=== PATIENT | male | born 1985 | race Caucasian/White ===

== ENCOUNTER 2024-02-27 08:06 | Emergency (ER) | payer SELFPAY ==
[2024-02-27 08:10] VITALS: BP 131/83
--- NOTE | 2024-02-27 08:14 | ED.GENMED ---
History of Present Illness
General
Chief Complaint: Flank Pain
Source: patient and ambulance crew
Time Seen by Provider: 02/27/24 08:13
History of Present Illness
History of Present Illness:
38yoM with no significant past medical history presenting via EMS for evaluation of flank pain. The pain started around midnight and woke him up from sleep. The pain is located in the left flank and LLQ. The pain has been constant. Nothing seems to
make the pain better or worse. No prior history of similar pains. He took 1000mg Tylenol about 3 hours ago. He also reports nausea but this is not unusual for him. He denies any fevers, vomiting, shortness of breath, pleuritic pain, testicular pain,
dysuria, hematuria, trauma. +Family history of kidney stones.
Phy Exam
Physical Exam
Physical Exam:
Appears uncomfortable, non-toxic
General Physical Exam
General Presentation: well appearing
General Skin: warm and dry
General Habitus: normal
General Mental: alert
General Hydration: appears well hydrated
ENT Exam
ENT Exam: normocephalic
Cardiovascular Exam
Cardiovascular Exam: regular rate/rhythm and no murmur
Pulmonary Exam
Pulmonary Exam: lungs clear, no respiratory distress, no rales, no crackles, no rhonchi and no wheezing
Gastrointestinal Exam
Gastrointestinal Exam: non tender, soft, non distended and no cva tenderness
Neurological Exam
Neurological Exam: alert
Jeffrey Coma Scale
Eye Opening: Spontaneous
Verbal Response: Oriented
Motor Response: Obeys Commands
GCS Total Score: 15
Skin Exam
Skin Exam: normal color and warm/dry
Psychiatric Exam
Psychiatric Exam: normal mood/affect
Course
Orders/Labs/Results
Orders:
Orders
02/27/24 08:13
0.9% Sodium Chloride 1000 ml [Nss] 1,000 ml IV BOLUS
Ketorolac [Toradol] 15 mg IV NOW STA
02/27/24 08:14
CT Abd/pel Without Iv Or Oral Urgent
Comment:
Reason For Exam: L flank pain, L sided abd pain
02/27/24 08:23
Complete Blood Count/With Diff Urgent
Comprehensive Metabolic Panel Urgent
02/27/24 10:09
Urinalysis Reflex To Culture Urgent
Date Specimen was Collected: 02/27/24
Time Specimen was Collected: 09:57
Urine Microscopic Reflex Cult Urgent
Abnormal Lab Results
02/27/24 02/27/24
08:23 10:09
RBC 4.56 L 10^6/uL
(4.70-6.10)
RDW 11.2 L %
(11.5-14.5)
MPV 10.6 H fL
(7.4-10.4)
Glucose 120 H mg/dl
(70-99)
Ur Occult Blood Reflex 4+ A
(Negative)
Urine RBC 26-30 A /HPF
(0-2)
02/27/24 08:23
02/27/24 08:23
Vital Signs
Initial and Last Documented VS:
Initial Vital Signs
Temp Pulse Resp BP Pulse Ox
98.6 F 69 20 131/83 99
02/27/24 08:10 02/27/24 08:10 02/27/24 08:10 02/27/24 08:10 02/27/24 08:10
Last Documented Vital Signs
Temp Pulse Resp BP Pulse Ox
97.7 F 73 18 116/79 100
02/27/24 10:53 02/27/24 10:53 02/27/24 10:53 02/27/24 10:53 02/27/24 10:53
MDM/Problems Addressed
Differential Diagnosis Includes:
38yoM here with atraumatic L flank and LLQ pain that began overnight. +Nausea. No urinary symptoms. Patient is afebrile and hemodynamically stable. He appears uncomfortable but is non-toxic. No reproducible abdominal or CVA tenderness. Differential
diagnosis includes but is not limited to: kidney stone, UTI, pyelonephritis, diverticulitis, musculoskeletal
Initial ED plan: Check CBC, CMP, UA, and CT abdomen. IV Toradol and fluid bolus for symptoms.
*Critical Care Note
Total Time (30-74mins, 75-104mins- exclusive of procedures): Not Applicable
Update Note
Update Note:
CT shows mild fat stranding to the distal aspect of the L ureter. No ureterolithiasis noted although 4mm non-obstructing L intrarenal stone noted. UA with 4+ blood without signs of infection. Suspect passed kidney stone. Pain has resolved after
receiving Toradol. He is stable for discharge. Supportive care discussed. Advised follow-up with PCP and urology. ED return precautions discussed. He expressed understanding and is agreement with plan. He was discharged in stable condition.
ED Attending Note
-
Portions of this chart may have been created with voice recognition software.� Occasional wrong word or��sound alike� substitutions may have occurred due to the inherent limitations of voice recognition software.
Discharge Plan
Departure
Patient Disposition: Home (Routine Discharge)
Date of Disposition: 02/27/24
Time of Disposition: 10:48
Patient with high blood pressure during this ER visit?: No
Discharge Problem:
Left flank pain
Instructions: Flank Pain (DC)
Referrals:
Enrrique Solis MD [Active] -
NONE,* [Family Provider] -
Activity Restrictions/Additional Instructions:
Take Tylenol and ibuprofen for pain.
Please follow-up with your family doctor and urology. Return to the ER with any new or worsening symptoms.
Interventions
Interventions:
*Risk Screen - Suicide Last Done: 02/27/24 08:10
*General Assessment Last Done: 02/27/24 08:10
*Neglect/Abuse Screening Last Done: 02/27/24 08:10
*ED COVID-19 Vaccine History Last Done: 02/27/24 08:55
*Nursing Disposition Last Done: 02/27/24 10:56
SC-Epqrsq-Rrtftdjytt Assessment Last Done: 02/27/24 08:55
ED-Male Genitourinary Assessment Last Done: 02/27/24 08:55
Discharge Date and Time
Discharge Date/Time: 02/27/24 10:59
Print Language: NEPALI
[2024-02-27 08:33] LABS: % Basophils 0.8 % (0-2); % Eosinophils 1.2 % (0-6); % Immature Granulocytes 0.3 % (0-0.5); % Lymphocytes 31.4 % (20.5-51.1); % Monocytes 6.2 % (1.7-9.3); % Neutrophils 60.1 % (42.2-75.2); Absolute Basophils 0.1 10^3/uL (0-0.2); Absolute Eosinophils 0.1 10^3/uL (0-0.7); Absolute Lymphocytes 2.3 10^3/uL (1.2-3.4); Absolute Monocytes 0.5 10^3/uL (0.1-0.6); Absolute Neutrophils 4.4 10^3/uL (1.4-6.5); Hematocrit 42.2 % (39.0-52.0); Mean Corp Hgb Conc. 33.2 g/dL (33.0-37.0); Mean Corpuscular Hgb 30.7 pg (27.0-31.0); Mean Corpuscular Volume 92.5 fL (80.0-94.0); Mean Platelet Volume 10.6 fL (7.4-10.4); Nucleated Red Blood Cells % 0 % (-); Platelet Count 226 10^3/uL (130-400); Red Blood Cell Count 4.56 10^6/uL (4.70-6.10); Red Cell Dist. Width 11.2 % (11.5-14.5); White Blood Cell Count 7.3 10^3/uL (4.8-10.8)
[2024-02-27] MEDS: NSS 1000 IV (08:35)
[2024-02-27] MEDS: TORADOL 15 MG IV (08:35)
[2024-02-27 08:45] LABS: ALT (SGPT) 22 U/L (0-50); AST (SGOT) 21 U/L (17-59); Albumin 4.4 g/dl (3.5-5.0); Alkaline Phosphatase 56 U/L (38-126); Blood Urea Nitrogen 17 mg/dl (9-20); Calcium 9.1 mg/dl (8.4-10.2); Carbon Dioxide 26 mmol/L (22-30); Chloride 104 mmol/L (98-107); Estimated Creatinine Clearance 102 ml/min; Glucose 120 mg/dl (70-99); Potassium 4.5 mmol/L (3.5-5.1); Sodium 139 mmol/L (135-145); Total Bilirubin 0.9 mg/dl (0.2-1.3); Total Protein 7.2 g/dl (6.3-8.2); eGFR > 60.00
[2024-02-27 10:25] LABS: Urine Albumin Negative (Neg - Trace); Urine Bilirubin Negative (Negative); Urine Character Clear (Clear); Urine Color Yellow; Urine Glucose Negative (Negative); Urine Ketone Negative (Negative); Urine Leukocyte Negative (Negative); Urine Nitrite Negative (Negative); Urine Occult Blood 4+ (Negative); Urine Urobilinogen Negative (Neg - 1+)
[2024-02-27 10:42] LABS: Urine Mucus Many
[2024-02-27 10:44] LABS: Urine Amorphous Seen; Urine Red Blood Cell 26-30 /HPF (0-2); Urine White Cell 0-2 /HPF (0-5)
[2024-02-27 10:53] VITALS: BP 116/79
== END 2024-02-27 10:59 | disposition home or self-care (01) ==
LOC: EMR 08:06
PROVIDERS: Physician Assistant; EMERGENCY PHYSICIAN Emergency Medicine
DX: R10.9 Unspecified abdominal pain (principal); R11.0 Nausea; N20.0 Calculus of kidney
CPT/HCPCS: 99284; 96374; 96361; 74176; 80053; 81003; 81015; 85025

== ENCOUNTER 2024-02-28 08:27 | Emergency (ER) | payer SELFPAY ==
[2024-02-28 08:33] VITALS: BP 113/72
--- NOTE | 2024-02-28 08:33 | ED.GENMED ---
ED Provider Triage
<Jazz Lopez PA-C - Last Filed: 02/28/24 08:41>
-
Patient seen by provider in Triage?: Seen in Triage
Attestation: A medical screening examination has been initiated by a qualified medical provider. Based on the assessment performed at this time, it has been determined that an emergent medical condition may exist and the patient has been informed
that further medical evaluation and possible additional diagnostic testing may be needed.
HPI: 38yoM here with L flank pain radiating to L abdomen/L testicle. Seen in ED yesterday for the same. CT abdomen showed inflammation of ureter with blood in urine without ureterolithiasis. Symptoms thought to be a passed stone and he was
discharged. Here with persistent pain and new testicle pain. Urinating normally. No fevers or vomiting.
GENERAL: Alert , in no apparent distress
EYE: No visual abnormalities.
NECK: Trachea midline
ENT: No visible abnormalities.
LUNGS: No acute respiratory distress
NEUROLOGICAL: Alert and oriented
SKIN: Skin intact. No visible changes.
MUSCULOSKELETAL: Moving extremities normally
PSYCH: Normal and appropriate interaction.
This is a medical evaluation conducted in person to initiate diagnostic evaluation and provide initial therapeutics. Please see further documentation by the treating clinician.
CBC, CMP, UA, and scrotal/renal ultrasound ordered. Patient declines analgesics in triage.
History of Present Illness
<Jazz Lopez PA-C - Last Filed: 02/28/24 08:41>
General
Chief Complaint: Male Genito-Urinary Symptoms
Time Seen by Provider: 02/28/24 10:50
<Colton Carmichael Jr., PA-C - Last Filed: 02/28/24 13:25>
General
Source: patient
Exam Limitations: none
Nursing documentation reviewed up to this point in time: agreed with
History of Present Illness
History of Present Illness:
38-year-old male presenting to the emergency department today with concerns of ongoing left-sided flank discomfort now moving to the left lower abdomen left groin. Had a CT scan yesterday that showed a 4 mm stone at the intrarenal collecting system
nonobstructing at the time. Also some fat stranding adjacent to the distal aspect of the left ureter which potentially was related to recently passed stone or ascending urinary tract infection. Do suspect that he recently passed out at the time
yesterday. He is presenting with worsening pain today. Denies fevers chest pain shortness of breath has been able to tolerate by mouth. Has been taking Motrin without full relief.
Review of Systems
<Colton Carmichael Jr., PA-C - Last Filed: 02/28/24 13:25>
Review of Systems
Allergies reviewed?: Yes
All Other Systems: ROS reviewed and negative except as documented in HPI and ROS
Phy Exam
<Colton Carmichael Jr., PA-C - Last Filed: 02/28/24 13:25>
Physical Exam
Physical Exam:
GENERAL: Alert , in no apparent distress
EYE: pupils equal and reactive
NECK: Supple, no significant adenopathy.
ENT: o/p clr, mmm.
CARDIAC: Regular rate and rhythm .
LUNGS: Clear breath sounds bilaterally, no acute respiratory distress, no wheezes/rales/rhonchi
ABDOMEN: Soft, without focal tenderness, no r/g, no cvat
NEUROLOGICAL: Alert and oriented, no focal neuro deficits
SKIN: Warm and dry, skin intact.
MUSCULOSKELETAL: No edema, well perfused.
PSYCH: Normal and appropriate interaction.
Course
<Jazz Lopez PA-C - Last Filed: 02/28/24 08:41>
Orders/Labs/Results
Orders:
Orders
02/28/24 08:35
Renal & Bladder US [US Renal With Bladder] Urgent
Comment:
Reason For Exam: L flank pain
Scrotum US [US Scrotum] Urgent
Comment:
Reason For Exam: L testicle pain
02/28/24 08:44
Complete Blood Count/With Diff Urgent
Comprehensive Metabolic Panel Urgent
Urinalysis Reflex To Culture Urgent
Date Specimen was Collected: 02/28/24
Time Specimen was Collected: 08:38
Urine Microscopic Reflex Cult Urgent
Urine Culture Urgent
JENNY Source: U
Specimen Description:
Date Specimen was Collected: 02/28/24
Time Specimen was Collected: 08:38
02/28/24 11:55
Ketorolac [Toradol] 30 mg IM NOW STA
Tamsulosin [Flomax] 0.4 mg PO NOW STA
Abnormal Lab Results
02/28/24
08:44
RBC 4.52 L 10^6/uL
(4.70-6.10)
MCH 31.4 H pg
(27.0-31.0)
RDW 11.4 L %
(11.5-14.5)
MPV 10.8 H fL
(7.4-10.4)
Glucose 113 H mg/dl
(70-99)
Ur Occult Blood Reflex 4+ A
(Negative)
Urine RBC 70-80 A /HPF
(0-2)
Urine Bacteria (Reflex) Many A
(Negative)
02/28/24 08:44
02/28/24 08:44
Vital Signs
Initial and Last Documented VS:
Initial Vital Signs
Temp Pulse Resp BP Pulse Ox
98 F 63 16 113/72 98
02/28/24 08:33 02/28/24 08:33 02/28/24 08:33 02/28/24 08:33 02/28/24 08:33
Last Documented Vital Signs
Temp Pulse Resp BP Pulse Ox
98 F 63 16 113/72 98
02/28/24 08:33 02/28/24 08:33 02/28/24 08:33 02/28/24 08:33 02/28/24 08:33
<Colton Carmichael Jr., PA-C - Last Filed: 02/28/24 13:25>
Orders/Labs/Results
Orders:
Orders
02/28/24 08:35
Renal & Bladder US [US Renal With Bladder] Urgent
Comment:
Reason For Exam: L flank pain
Scrotum US [US Scrotum] Urgent
Comment:
Reason For Exam: L testicle pain
02/28/24 08:44
Complete Blood Count/With Diff Urgent
Comprehensive Metabolic Panel Urgent
Urinalysis Reflex To Culture Urgent
Date Specimen was Collected: 02/28/24
Time Specimen was Collected: 08:38
Urine Microscopic Reflex Cult Urgent
Urine Culture Urgent
JENNY Source: U
Specimen Description:
Date Specimen was Collected: 02/28/24
Time Specimen was Collected: 08:38
02/28/24 11:55
Ketorolac [Toradol] 30 mg IM NOW STA
Tamsulosin [Flomax] 0.4 mg PO NOW STA
Abnormal Lab Results
02/28/24
08:44
RBC 4.52 L 10^6/uL
(4.70-6.10)
MCH 31.4 H pg
(27.0-31.0)
RDW 11.4 L %
(11.5-14.5)
MPV 10.8 H fL
(7.4-10.4)
Glucose 113 H mg/dl
(70-99)
Ur Occult Blood Reflex 4+ A
(Negative)
Urine RBC 70-80 A /HPF
(0-2)
Urine Bacteria (Reflex) Many A
(Negative)
02/28/24 08:44
02/28/24 08:44
Vital Signs
Initial and Last Documented VS:
Initial Vital Signs
Temp Pulse Resp BP Pulse Ox
98 F 63 16 113/72 98
02/28/24 08:33 02/28/24 08:33 02/28/24 08:33 02/28/24 08:33 02/28/24 08:33
Last Documented Vital Signs
Temp Pulse Resp BP Pulse Ox
98 F 63 16 113/72 98
02/28/24 08:33 02/28/24 08:33 02/28/24 08:33 02/28/24 08:33 02/28/24 08:33
<Colton Carmichael Jr., PA-C - Last Filed: 02/28/24 13:25>
MDM/Problems Addressed
MDM/Problems Addressed:
38-year-old male presenting to the emergency department today with concerns of progressive pain previously left flank pain now left groin pain. Was seen to have a 4 mm stone at the pelvis of the kidney nonobstructing yesterday they are deemed
possibly have a recently passed stone yesterday. Today an ultrasound that did not show any abnormalities to the kidney but did not show evidence of a stone possibly representing a stone down the ureter. Ultrasound of the scrotum was normal patient
denies any specific changes to the scrotum. Labs without significant white counts normal renal function and no evidence of urinary tract infection to have ongoing discomfort from plan for symptomatic treatment and urology follow-up.
<Colton Carmichael Jr., PA-C - Last Filed: 02/28/24 13:25>
*Critical Care Note
Total Time (30-74mins, 75-104mins- exclusive of procedures): Not Applicable
ED Attending Note
<Jazz Lopez PA-C - Last Filed: 02/28/24 08:41>
-
Portions of this chart may have been created with voice recognition software.� Occasional wrong word or��sound alike� substitutions may have occurred due to the inherent limitations of voice recognition software.
Discharge Plan
Departure
Patient Disposition: Home (Routine Discharge)
Date of Disposition: 02/28/24
Time of Disposition: 13:20
Patient with high blood pressure during this ER visit?: No
Condition: Good
Covid-19: Not Applicable
Discharge Problem:
Calculus, ureteral
Instructions: Kidney Stone, Adult ED
Prescriptions:
New
ketorolac 10 mg tablet
10 mg PO Q8H 5 Days Qty: 15 0RF
tamsulosin [Flomax] 0.4 mg capsule
0.4 mg PO DAILY Qty: 10 0RF
Referrals:
NONE,* [Family Provider] -
Jatinder Hendrickson MD [Active] - Follow up in 5-7 days
Activity Restrictions/Additional Instructions:
You came to the emergency department today with concerns of ongoing flank lower abdominal and groin discomfort. This likely is from a kidney stone. Please follow-up closely with urology and take the prescribed occasions. Return for any worsening,
new or concerning symptoms.
Interventions
Interventions:
*Risk Screen - Suicide Last Done: 02/28/24 08:33
*General Assessment Last Done: 02/28/24 08:33
*Neglect/Abuse Screening Last Done: 02/28/24 08:33
Discharge Date and Time
Print Language: SLOVENIAN
[2024-02-28 08:54] LABS: Urine Albumin Trace (Neg - Trace); Urine Bilirubin Negative (Negative); Urine Character Clear (Clear); Urine Color Yellow; Urine Glucose Negative (Negative); Urine Ketone Negative (Negative); Urine Leukocyte Negative (Negative); Urine Nitrite Negative (Negative); Urine Occult Blood 4+ (Negative); Urine Urobilinogen Negative (Neg - 1+)
[2024-02-28 09:04] LABS: Urine Squamous Cell >30 /LPF (Few)
[2024-02-28 09:05] LABS: ALT (SGPT) 21 U/L (0-50); AST (SGOT) 21 U/L (17-59); Albumin 4.4 g/dl (3.5-5.0); Alkaline Phosphatase 53 U/L (38-126); Blood Urea Nitrogen 13 mg/dl (9-20); Calcium 9.3 mg/dl (8.4-10.2); Carbon Dioxide 30 mmol/L (22-30); Chloride 104 mmol/L (98-107); Glucose 113 mg/dl (70-99); Potassium 4.3 mmol/L (3.5-5.1); Sodium 142 mmol/L (135-145); Total Protein 7.3 g/dl (6.3-8.2); Urine Bacteria Many (Negative); Urine Red Blood Cell 70-80 /HPF (0-2); Urine White Cell 0-2 /HPF (0-5); eGFR > 60.00
[2024-02-28 09:09] LABS: % Basophils 0.8 % (0-2); % Eosinophils 1.5 % (0-6); % Immature Granulocytes 0.3 % (0-0.5); % Lymphocytes 35.5 % (20.5-51.1); % Monocytes 7.4 % (1.7-9.3); % Neutrophils 54.5 % (42.2-75.2); Absolute Basophils 0.1 10^3/uL (0-0.2); Absolute Eosinophils 0.1 10^3/uL (0-0.7); Absolute Lymphocytes 2.7 10^3/uL (1.2-3.4); Absolute Monocytes 0.6 10^3/uL (0.1-0.6); Absolute Neutrophils 4.1 10^3/uL (1.4-6.5); Hematocrit 42.4 % (39.0-52.0); Hemoglobin 14.2 g/dL (13.0-18.0); Mean Corp Hgb Conc. 33.5 g/dL (33.0-37.0); Mean Corpuscular Hgb 31.4 pg (27.0-31.0); Mean Corpuscular Volume 93.8 fL (80.0-94.0); Mean Platelet Volume 10.8 fL (7.4-10.4); Nucleated Red Blood Cells % 0 % (-); Platelet Count 228 10^3/uL (130-400); Red Blood Cell Count 4.52 10^6/uL (4.70-6.10); Red Cell Dist. Width 11.4 % (11.5-14.5); White Blood Cell Count 7.6 10^3/uL (4.8-10.8)
[2024-02-28] MEDS: TORADOL 30 MG IM (12:08)
[2024-02-28] MEDS: FLOMAX 0.4 MG PO (12:09)
[2024-02-28 13:42] VITALS: BP 115/70
== END 2024-02-28 13:44 | disposition home or self-care (01) ==
LOC: EMR 08:27
PROVIDERS: Physician Assistant; EMERGENCY PHYSICIAN Emergency Medicine
DX: N20.1 Calculus of ureter (principal); Z87.440 Personal history of urinary (tract) infections
CPT/HCPCS: 99284; 96372; 76770; 76870; 80053; 81003; 81015; 85025; 87086; 93976

== ENCOUNTER 2025-02-05 13:40 | Emergency (ER) | payer OTHER, SELFPAY ==
[2025-02-05 13:45] VITALS: BP 126/83
--- NOTE | 2025-02-05 15:14 | ED.GENMED ---
History of Present Illness
General
Chief Complaint: Chest Pain
Time Seen by Provider: 02/05/25 15:14
History of Present Illness
History of Present Illness:
FOCUSED PAST MEDICAL HISTORY
- No significant past medical history
REVIEW OF OLD RECORDS
- The patient has been seen here with flank pain in the past
Note:
CHIEF COMPLAINT(S)
Left upper abdominal pain and numbness under the ribs.
HISTORY OF PRESENT ILLNESS
The patient is a 39-year-old male presenting with left upper abdominal pain and a sensation of numbness beneath the ribs on the anterior side. The symptoms are localized, with no pain radiating to the right side or associated with the gallbladder
region. The onset was not associated with any particular trauma or injury, and the patient denies any respiratory-related pain or symptoms upon inspiration. The patient describes the sensation as a 'bubble' beneath the ribs that feels as if it is
'pushing up,' creating discomfort. No rash or dermatological symptoms indicative of shingles were observed. The pain does not worsen with deep breaths, and the sensation is more pronounced upon touch. The patient reports the pain is more intense
than a mild pinch.
PAST MEDICAL AND SURGICAL HISTORY
The patient denies a history of high blood pressure, high cholesterol, or diabetes.
SOCIAL HISTORY
The patient reports having recently started smoking but states that he is not smoking anymore.
REVIEW OF SYSTEMS
- Respiratory: No pain on inspiration, oxygen levels are normal.
- Cardiovascular: Previous EKG was normal.
- Gastrointestinal: Localized pain in the left upper abdomen without referred pain or gastrointestinal distress.
- Neurological: Describes a 'numb' sensation but is responsive to physical touch.
PHYSICAL EXAM
General: Alert, no acute distress.
Skin: No rashes observed in the affected area.
Head: Normocephalic, atraumatic.
Neck: Supple, trachea midline.
Eyes, Ears, Nose, Mouth, and Throat: Oral mucosa moist.
Cardiovascular: Normal peripheral perfusion, no edema.
Respiratory: Respirations are non-labored.
Gastrointestinal: Abdomen nondistended; minimal tenderness to palpation of the left 10th rib anteriorly, no significant left upper quadrant tenderness
Back: Normal range of motion, normal alignment.
Musculoskeletal: Normal range of motion, normal strength.
Neurological: Alert and oriented to person, place, time, and situation; no focal neurological deficit observed.
Psychiatric: Cooperative, appropriate mood and affect.
PLAN
1. Perform laboratory blood work to rule out serious underlying concerns, including cardiac causes.
2. Obtain a chest X-ray to assess for any structural abnormalities or other causes of the pain.
3. Conduct a screening test to rule out the possibility of a blood clot. If abnormalities are detected, consider a CT scan for further evaluation.
4. Administer Toradol intravenously for pain relief, recognizing it as a non-opioid anti-inflammatory medication.
5. Follow up to discuss test results and determine further management if needed.
DIFFERENTIAL DIAGNOSIS
The Differential Diagnosis includes, in no particular order and is not limited to:
1. Musculoskeletal pain
2. Costochondritis
3. Rib fracture or contusion
4. Pleurisy
5. Gastroesophageal reflux disease (GERD)
6. Pancreatitis
7. Splenic involvement or pathology
8. Peptic ulcer disease
9. Herpes Zoster (Shingles) without rash
10. Acute coronary syndrome (less likely given EKG results but remains a consideration)
RADIOLOGY
- Chest x-ray obtain which shows no acute abnormality
EKG
- Sinus 62, RSR' pattern, incomplete right bundle branch block, no acute ST abnormality, no old to compare
LABS
- D-dimer and troponin obtained and both are unremarkable
UPDATE
- Toradol given
SUMMARY OF ENCOUNTER
The patient, a 39-year-old male, presented to the emergency department with left upper abdominal pain and numbness beneath the ribs. Workup included laboratory blood tests and a chest X-ray. The x-ray showed no structural abnormalities such as
pneumonia, air outside the lung, or signs of blood clots or heart attack. An EKG was performed and yielded normal results. The findings suggest that the pain could be due to musculoskeletal inflammation or rib cage issues, and it may improve with
NSAIDs like ibuprofen (Motrin). The patients vital signs were stable, and there was no medical indication for an inpatient stay.
DISPOSITION
Discharge.
ASSESSMENT
Left side chest wall pain likely of musculoskeletal origin.
PLAN
The patient will be discharged with recommendations for [id number] ibuprofen (Motrin) as needed for pain relief.
INDEPENDENT REVIEW OF LABS AND INTERPRETATION OF TESTS
My independent interpretation of the chest x-ray is that it shows no abnormalities suggestive of structural issues, such as pneumonia or pneumothorax. The EKG reviewed appeared normal with no indications of cardiac issues.
PATIENT EDUCATION AND COUNSELING
The patient was advised on the likely musculoskeletal nature of the pain and the potential benefit of NSAIDs such as ibuprofen. Patient was informed of the normal results of the x-ray and EKG, reinforcing the absence of serious issues like pneumonia
or cardiac events.
FOLLOW-UP INSTRUCTIONS
The patient is advised to follow up with a primary care physician if symptoms persist or worsen for further evaluation and management.
MEDICATION RECONCILIATION
The patient is recommended to take [id number] ibuprofen (Motrin) for pain management as needed.
MEDICAL DECISION MAKING
-Complexity of Data Reviewed: Differential diagnoses include musculoskeletal pain, costochondritis, rib fracture or contusion, pleurisy, gastroesophageal reflux disease (GERD), pancreatitis, splenic involvement or pathology, peptic ulcer disease,
hidden herpes zoster (without rash), and acute coronary syndrome.
-Data:
Category 1:
My independent interpretation of chest x-ray and EKG shows no abnormalities.
-Risk:
Prescription medication was not prescribed, as [id number] NSAIDs were recommended instead.
DIAGNOSIS
Left-sided chest wall pain
Phy Exam
Physical Exam
Physical Exam:
See HPI
Scores
Heart Score for Chest Pain Patients
STEMI patient?: Not applicable
Course
Orders/Labs/Results
Orders:
Orders
02/05/25 13:41
EKG [Electrocardiogram (*1)] Urgent
Reason for Study: Chest Pain
EKG- Treatment ONCE
02/05/25 15:25
Ketorolac [Toradol] 15 mg IV NOW STA
02/05/25 15:26
CR Chest - 2 Views Urgent
Comment:
Reason For Exam: L lower chest pain
02/05/25 15:42
Complete Blood Count/With Diff Urgent
Comprehensive Metabolic Panel Urgent
D-Dimer Urgent
Troponin I Urgent
Abnormal Lab Results
02/05/25
15:42
RBC 4.54 L 10^6/uL
(4.70-6.10)
MCH 31.3 H pg
(27.0-31.0)
RDW 11.2 L %
(11.5-14.5)
MPV 10.8 H fL
(7.4-10.4)
Absolute Monos (auto) 0.7 H 10^3/uL
(0.1-0.6)
Carbon Dioxide 31 H mmol/L
(22-30)
02/05/25 15:42
02/05/25 15:42
Vital Signs
Initial and Last Documented VS:
Initial Vital Signs
Temp Pulse Resp BP Pulse Ox
36.9 C 72 18 126/83 97
02/05/25 13:45 02/05/25 13:45 02/05/25 13:45 02/05/25 13:45 02/05/25 13:45
Last Documented Vital Signs
Temp Pulse Resp BP Pulse Ox
36.9 C 60 15 120/68 97
02/05/25 13:45 02/05/25 16:30 02/05/25 16:30 02/05/25 15:18 02/05/25 16:30
*Pulse Oximetry
SaO2: 97
Oxygen Mode of Delivery: Room air
Patient hypoxic: no
*Critical Care Note
Total Time (30-74mins, 75-104mins- exclusive of procedures): Not Applicable
ED Attending Note
-
Portions of this chart may have been created with voice recognition software.� Occasional wrong word or��sound alike� substitutions may have occurred due to the inherent limitations of voice recognition software.
Discharge Plan
Departure
Patient Disposition: Home (Routine Discharge)
Date of Disposition: 02/05/25
Time of Disposition: 16:47
Patient with high blood pressure during this ER visit?: Yes
Discharge Problem:
Acute chest wall pain
Instructions: Costochondritis, Chest Pain PCP Follow Up, BLOOD PRESSURE
Prescriptions:
No Action
ketorolac 10 mg tablet
10 mg PO Q8H 5 Days Qty: 15 0RF
tamsulosin [Flomax] 0.4 mg capsule
0.4 mg PO DAILY Qty: 10 0RF
Activity Restrictions/Additional Instructions:
I recommend 3-4 [id number]-[id number] ibuprofen (Motrin) every 8 hours with food for a few days. Return here if worse. Blood work shows no sign of heart attack or blood clot. Chest x-ray is normal. Your symptoms could be coming from the chest wall
itself and therefore I recommend NSAIDs such as ibuprofen/Motrin.
Interventions
Interventions:
*Risk Screen - Suicide Last Done: 02/05/25 13:45
*General Assessment Last Done: 02/05/25 13:45
*Neglect/Abuse Screening Last Done: 02/05/25 13:45
Discharge Date and Time
Print Language: CITIZEN OF [place]
[2025-02-05 15:18] VITALS: BP 120/68
[2025-02-05] MEDS: TORADOL 15 MG IV (15:39)
[2025-02-05 15:54] LABS: Hematocrit 42.5 % (39.0-52.0); Hemoglobin 14.2 g/dL (13.0-18.0); Mean Corp Hgb Conc. 33.4 g/dL (33.0-37.0); Mean Corpuscular Volume 93.6 fL (80.0-94.0); Nucleated Red Blood Cells % 0 % (-); Platelet Count 262 10^3/uL (130-400); Red Cell Dist. Width 11.2 % (11.5-14.5)
[2025-02-05 16:02] LABS: D-Dimer 0.29 ug/mlFEU (0.00-0.50)
[2025-02-05 16:04] LABS: ALT (SGPT) 24 U/L (0-50); AST (SGOT) 21 U/L (17-59); Albumin 4.6 g/dl (3.5-5.0); Alkaline Phosphatase 75 U/L (38-126); Blood Urea Nitrogen 15 mg/dl (9-20); Calcium 9.8 mg/dl (8.4-10.2); Carbon Dioxide 31 mmol/L (22-30); Chloride 103 mmol/L (98-107); Glucose 91 mg/dl (70-99); Potassium 4.7 mmol/L (3.5-5.1); Sodium 139 mmol/L (135-145); Total Protein 7.7 g/dl (6.3-8.2); eGFR > 60.00
[2025-02-05 16:15] LABS: Troponin I < 0.012 ng/ml
== END 2025-02-05 17:15 | disposition home or self-care (01) ==
LOC: EMR 13:40
PROVIDERS: EMERGENCY PHYSICIAN Emergency Medicine; FAMILY PHYSICIAN Family Medicine
DX: R07.89 Other chest pain (principal); I45.10 Unspecified right bundle-branch block; R20.0 Anesthesia of skin; F17.200 Nicotine dependence, unspecified, uncomplicated
CPT/HCPCS: 96374; 99285; 71046; 80053; 84484; 85025; 85379; 93005

== ENCOUNTER 2025-02-18 15:02 | Emergency (ER) | payer OTHER, SELFPAY ==
[2025-02-18 15:09] VITALS: BP 114/75
--- NOTE | 2025-02-18 16:22 | ED.GENMED ---
History of Present Illness
General
Chief Complaint: Musculo-Skeletal Complaint
Source: patient
Exam Limitations: none
Time Seen by Provider: 02/18/25 16:00
Nursing documentation reviewed up to this point in time: agreed with
History of Present Illness
History of Present Illness:
Patient is a 39-year-old male presents to the ER for evaluation of heel pain. Patient's had pain to his right heel for the past 1 month. He denies any injury. Denies any fever chills or swelling
Phy Exam
General Physical Exam
General Presentation: no apparent distress
General age: appears stated age
General Skin: warm and dry
General Habitus: normal
General Mental: alert
General Hydration: appears well hydrated
Neurological Exam
Neurological Exam: alert and oriented x3
Musculoskeletal Exam
Musculoskeletal Exam: other (Right plantar aspect of heel with small wart like lesion no erythema or swelling )
Skin Exam
Skin Exam: normal color and warm/dry
Psychiatric Exam
Psychiatric Exam: normal mood/affect
Course
Orders/Labs/Results
Orders:
Orders
02/18/25 15:11
Foot, Right 3 View [CR Foot - Right Min 3 Views] Urgent
Comment:
Reason For Exam: pain
Vital Signs
Initial and Last Documented VS:
Initial Vital Signs
Temp Pulse Resp BP Pulse Ox
98.4 F 85 18 114/75 97
02/18/25 15:09 02/18/25 15:09 02/18/25 15:09 02/18/25 15:09 02/18/25 15:09
Last Documented Vital Signs
Temp Pulse Resp BP Pulse Ox
98.4 F 85 18 114/75 97
02/18/25 15:09 02/18/25 15:09 02/18/25 15:09 02/18/25 15:09 02/18/25 16:24
MDM/Problems Addressed
Differential Diagnosis Includes:
Not limited plantars wart less likely from
MDM/Problems Addressed:
Patient's exam consistent with small wart to the plantar aspect of his heel. There is no evidence of infection patient is well-appearing. I do not believe this is a foreign body x-ray negative for acute findings .patient has had symptoms for the
past month. Will have him follow-up with podiatry.
*Radiology
Radiology exam reviewed: radiology read reviewed
*Pulse Oximetry
SaO2: 97
Oxygen Mode of Delivery: Room air
Patient hypoxic: no
*Critical Care Note
Total Time (30-74mins, 75-104mins- exclusive of procedures): Not Applicable
ED Attending Note
-
Portions of this chart may have been created with voice recognition software.� Occasional wrong word or��sound alike� substitutions may have occurred due to the inherent limitations of voice recognition software.
Discharge Plan
Departure
Patient Disposition: Home (Routine Discharge)
Date of Disposition: 02/18/25
Time of Disposition: 16:19
Patient with high blood pressure during this ER visit?: No
Condition: Fair
Covid-19: Not Applicable
Discharge Problem:
Plantar wart of right foot
Instructions: Plantar Warts (DC)
Prescriptions:
No Action
ketorolac 10 mg tablet
10 mg PO Q8H 5 Days Qty: 15 0RF
tamsulosin [Flomax] 0.4 mg capsule
0.4 mg PO DAILY Qty: 10 0RF
Referrals:
Arpil Good DPM [Active, Podiatry]
Jose Lott DPM [Specified Professional Personl, Podiatry]
Activity Restrictions/Additional Instructions:
As discussed please follow-up with podiatry. Please call tomorrow to make an appointment as soon as possible.
return if any worsening of symptoms
Interventions
Interventions:
*Risk Screen - Suicide Last Done: 02/18/25 15:09
*General Assessment Last Done: 02/18/25 15:09
*Neglect/Abuse Screening Last Done: 02/18/25 15:09
Discharge Date and Time
Print Language: ESTONIAN
== END 2025-02-18 17:33 | disposition home or self-care (01) ==
LOC: EMR 15:02
PROVIDERS: EMERGENCY PHYSICIAN Emergency Medicine
DX: B07.0 Plantar wart (principal)
CPT/HCPCS: 99283; 73630